=== PATIENT | female | born 1960 | race Caucasian/White ===

== ENCOUNTER 2017-06-28 12:14 | Emergency (ER) | payer BC, OTHER ==
[2017-06-28 12:36] VITALS: BP 130/79
[2017-06-28] MEDS ORDERED: Albuterol 2.5 MG/3 ML NEB.SOL* (0.083%) INH ONE (12:51)
[2017-06-28] MEDS ORDERED: Ipratropium 0.5MG/2.5ML NEB* 0.5 MG/2.5 ML NEB.SOLN INH ONE (12:51)
--- NOTE | 2017-06-28 12:51 | UC ---
Respiratory Complaint HPI - HPI Summary HPI Summary: dry cough for about a week followed by wheezing and chest tightness x 2 days fatigued and SOB with activity no f/c no n/v/d - History of Current Complaint Chief Complaint: UCRespiratory Stated Complaint: SHORTNESS OF BREATH Hx Obtained From: Patient Onset/Duration: Gradual Onset, Lasting Days Timing: Constant Severity Initially: Mild Severity Currently: Moderate Pain Intensity: 8 - at times with cough Pain Scale Used: 0-10 Numeric Character: Cough: Nonproductive Aggravating Factors: Nothing Alleviating Factors: Bronchodilator Associated Signs And Symptoms: Positive: Wheezing, Nasal Congestion - Allergies/Home Medications Allergies/Adverse Reactions: Allergies Allergy/AdvReac Type Severity Reaction Status Date / Time Nitrofurantoin Allergy Vomiting Verified 06/28/17 12:24 [From Macrodantin] Home Medications: Home Medications Acyclovir* [Zovirax 200 MG CAP*] 200 mg PO SEE INSTRUCTIONS PRN 06/28/17 [ History Confirmed 06/28/17] Albuterol 2.5MG/3ML (0.083%)* [Ventolin 2.5 MG/3 ML [place]B.[place]*] 2.5 mg INH Q4H PRN 06/28/17 [History Confirmed 06/28/17] Albuterol HFA INHALER* [Ventolin HFA Inhaler*] 1 - 2 puff INH Q4H PRN 06/28/17 [ History Confirmed 06/28/17] Calcium Carbonate-Cholecalcife [Calcium 600 + D 600-200 mg-Unit] 1 tab PO DAILY 06/28/17 [History Confirmed 06/28/17] Fluticasone-Salmeterol 500-50* [Advair Diskus 500-50*] 1 puff INH BID 06/28/17 [ History Confirmed 06/28/17] Folic Acid TAB* [Folvite TAB*] 1 mg PO DAILY 06/28/17 [History Confirmed ] Methotrexate TAB* 4 tab PO WEEKLY 06/28/17 [History Confirmed 06/28/17] Simvastatin TAB(NF) [Zocor 20 MG (NF)] 40 mg PO DAILY 06/28/17 [History Confirmed 06/28/17] Tiotropium [place] Monohydrate [Spiriva Respimat] 2.5 mcg IN DAILY 06/28/17 [ History Confirmed 06/28/17] Varenicline 0.5 mg Tab(Nf) [Chantix 0.5 MG TAB(NF)] 0.5 mg PO DAILY 06/28/17 [ History Confirmed 06/28/17] PMH/Surg Hx/FS Hx/Imm Hx Previously Healthy: No - RA on MTX Endocrine History: Dyslipidemia Cardiovascular History: Hypertension Respiratory History: COPD, Asthma, Bronchitis - Surgical History Surgical History: Yes Surgery Procedure, Year, and Place: D/C; THYROIDECTOMY; ;. RIGHT breast biopsy- benign, pt states "chip was placed" - Family History Known Family History: Positive: Cardiac Disease, Hypertension - Social History Alcohol Use: Occasionally Substance Use Type: None Smoking Status (MU): Current Every Day Smoker Type: Cigarettes Amount Used/How Often: 1/2 ppd - Immunization History Most Recent Influenza Vaccination: "not yet" 2016 Review of Systems Constitutional: Fatigue Skin: Negative Eyes: Negative ENT: Nasal Discharge Respiratory: Cough Cardiovascular: Negative Gastrointestinal: Negative Genitourinary: Negative Motor: Negative Neurovascular: Negative Musculoskeletal: Negative Neurological: Negative Psychological: Negative All Other Systems Reviewed And Are Negative: Yes Physical Exam Triage Information Reviewed: Yes Appearance: Well-Appearing, No Pain Distress, Well-Nourished Vital Signs: Initial Vital Signs Temp 97.4 F 06/28/17 12:25 Pulse 99 06/28/17 12:25 Resp 20 06/28/17 12:25 BP 130/79 06/28/17 12:25 Pulse Ox 97 06/28/17 12:25 Vital Signs Reviewed: Yes Eyes: Positive: Conjunctiva Clear ENT: Negative: Hearing grossly normal, Nasal congestion, Nasal drainage, Trismus , Muffled/hoarse voice Neck: Positive: Nontender, No Lymphadenopathy Respiratory: Positive: No respiratory distress, No accessory muscle use, Wheezing Cardiovascular: Positive: RRR, No Murmur. Negative: Tachycardia, Bradycardia Musculoskeletal: Positive: ROM Intact, No Edema Neurological Exam: Normal Neurological: Positive: Alert Psychological Exam: Normal Skin Exam: Normal UC Diagnostic Evaluation - Laboratory O2 Sat by Pulse Oximetry: 97 - normal/not hypoxic - Radiology Xray Interpretation: No Acute Changes Radiology Interpretation Completed By: Radiologist - EKG Cardiac Rhythm: Sinus: Normal Ectopy: None ST Segment: Normal Re-Evaluation - Re-Evaluation First Eval Re-Evaluation Time: 13:45 Change: Improved - lungs CTA Respiratory Course/Dx - Differential Dx/Diagnosis Provider Diagnoses: acute bronchitis with bronchospasm Discharge - Discharge Plan Condition: Stable Disposition: HOME Prescriptions: Azithromycin TAB* [Zithromax TAB (Z-HENRIK) 250 mg #6 tabs] 250 mg PO DAILY #6 tab Fluconazole 150 MG (NF) [Diflucan 150 mg (NF)] 150 mg PO ONCE #2 tab Prednisone [Deltasone] 40 mg PO DAILY #10 tab Patient Education Materials: Acute Bronchitis (ED) Forms: *Work Release Additional Instructions: recheck in 2-3 days if not better recheck sooner if symptoms worsen
--- NOTE | 2017-06-28 13:31 | RAD ---
INDICATION: Cough, chest tightness, fatigue 3 days duration. History of tobacco use. COMPARISON: No relevant prior exams available on the [facility] for comparison. TECHNIQUE: Dual energy PA and routine lateral views of the chest were obtained. REPORT: Elevated lung volumes and both diffuse mild prominence of the interstitial markings and patchy rarefaction of the mid to upper lung zone interstitial markings. The heart, pulmonary vasculature, and mediastinal contours are unremarkable. Small biopsy marker clip noted at the RIGHT breast. Unremarkable osseous structures for age. IMPRESSION: Stigmata of obstructive lung disease. No acute pulmonary or cardiac process evident.
== END 2017-06-28 14:00 | disposition home or self-care (01) ==
LOC: UCCORT 12:14
DX: J20.9 Acute bronchitis, unspecified (principal)
CPT/HCPCS: 71020; 93005; 99202; G0463; J7644